=== PATIENT | female | born 1965 | race Caucasian/White ===

== ENCOUNTER 2017-05-18 12:08 | Emergency (ER) | payer MEDICAID, OTHER ==
[~2017-05-18] VITALS: Ht 175.3 cm; Wt 81.6 kg
--- NOTE | 2017-05-18 12:29 | NUR ---
Note carolbillie in EDM - 05/18/17 at 1231 by PAULA Patient discharged to home in stable conditon. Written and verbal after care instructions given. Patient MOTHERverbalizes understanding of instructions.PT SMILING, NO SIGN OF DISTRESS AT THIS TIME. PT WITH MOTHER
[2017-05-18] MEDS ORDERED: ONDANSETRON 4 MG/2 ML VIAL ONE (12:36)
[2017-05-18] MEDS ORDERED: MORPHINE SULFATE 4 MG/1 ML DISP.SYRIN ONE (12:36)
[2017-05-18] MEDS ORDERED: KETOROLAC TROMETHAMINE 30 MG INJ ONE (12:36)
[2017-05-18] MEDS ORDERED: IV NORMAL SALINE 1000 ML BAG IV ONE ×2 (12:45→14:15)
[2017-05-18] MEDS ORDERED: KETOROLAC TROMETHAMINE 30 MG INJ IVP ONE (12:45)
[2017-05-18] MEDS ORDERED: MORPHINE SULFATE 2 MG/1 ML DISP.SYRIN IV ONE (12:45)
[2017-05-18] MEDS ORDERED: ONDANSETRON 4 MG/2 ML VIAL IV ONE (12:45)
[2017-05-18] MEDS ORDERED: HYDROMORPHONE 2 MG/1 ML DISP.SYRIN ONE (12:46)
[2017-05-18 12:51] LABS: BASOPHILS # (AUTO) 0.1 K/uL (0.0-8.0); BASOPHILS % (AUTO) 0.6 % (0.0-2.0); EOSINOPHILS # (AUTO) 0.1 K/uL (0.0-0.7); EOSINOPHILS % (AUTO) 1.1 % (0.0-7.0); HEMATOCRIT 35.7 % (31.2-41.9); HEMOGLOBIN 12.2 g/dL (10.9-14.3); LYMPHOCYTES # (AUTO) 0.9 K/uL (20.0-40.0); LYMPHOCYTES % (AUTO) 9.4 % (20.5-51.5); MEAN CORPUSCULAR HEMOGLOBIN 29.9 uug (24.7-32.8); MEAN CORPUSCULAR HGB CONC 34 g/dL (32.3-35.6); MEAN CORPUSCULAR VOLUME 87.3 fL (75.5-95.3); MONOCYTES % (AUTO) 10.5 % (0.0-11.0); NEUTROPHILS # (AUTO) 7.2 K/uL (1.8-8.9); NEUTROPHILS % (AUTO) 78.4 % (38.5-71.5); PLATELET COUNT (AUTO) 316 K/uL (179-408); RED BLOOD CELL COUNT(AUTO) 4.09 MIL/uL (3.63-4.92); WHITE BLOOD COUNT (AUTO) 9.1 K/uL (3.8-11.8)
[2017-05-18 12:59] LABS: CREATININE 1.1 mg/dL (0.6-1.3); POTASSIUM 3.7 mmol/L (3.5-5.1)
[2017-05-18] MEDS ORDERED: HYDROMORPHONE 1 MG/1 ML DISP.SYRIN IV ONE (13:00)
[2017-05-18] MEDS ORDERED: AMLODIPINE 5 MG TABLET PO ONE (13:00)
[2017-05-18 13:09] LABS: BILIRUBIN,DIRECT 0.1 mg/dL (0.0-0.2); BILIRUBIN,TOTAL 0.2 mg/dL (0.2-1.0); TOTAL PROTEIN, SERUM 6.8 g/dL (6.4-8.2)
[2017-05-18] MEDS ORDERED: AMLODIPINE 5 MG TABLET ONE (13:09)
--- NOTE | 2017-05-18 13:36 | NUR ---
EKG DELAYED TO PT BECOME COMFORTABLE.
--- NOTE | 2017-05-18 13:44 | NUR ---
CALLED DR. BETHEA AND LEFT A MESSAGE WITH MARIA EUGENIA.
--- NOTE | 2017-05-18 13:56 | NUR ---
DR. BETHEA TALKINT OT DR. MENG OVER THE PHONE
[2017-05-18] MEDS ORDERED: TAMSULOSIN HCL 0.4 MG CAP.SR.24H ONE (14:05)
[2017-05-18] MEDS ORDERED: TAMSULOSIN HCL 0.4 MG CAP.SR.24H PO ONE (14:15)
[2017-05-18] MEDS ORDERED: CEPHALEXIN MONOHYDRATE 500 MG CAPSULE ONE (17:21)
[2017-05-18] MEDS ORDERED: CEPHALEXIN MONOHYDRATE 500 MG CAPSULE PO ONE (17:30)
--- NOTE | 2017-05-18 18:44 | NUR ---
Patient discharged to home in stable conditon. Written and verbal after care instructions given. Patient verbalizes understanding of instructions.pt walks in steady gait. a copy of al the er work up provided for pt for follow up. pt not driving. pt accompanied by boy friend
[2017-05-18 18:45] VITALS: BP 121/78
== END 2017-05-18 18:47 | disposition home or self-care (01) ==
LOC: ER 12:08
DX: N23 Unspecified renal colic (principal); N13.2 Hydronephrosis with renal and ureteral calculous obstruction; F17.210 Nicotine dependence, cigarettes, uncomplicated; F12.10 Cannabis abuse, uncomplicated; Z88.2 Allergy status to sulfonamides; Z88.1 Allergy status to other antibiotic agents
CPT/HCPCS: 36415; 70030-TC; 83690; 85025; 93005; A4663; J1170; J1885; J2270; J2405; J7030

== ENCOUNTER 2018-12-04 02:59 | Emergency (ER) | payer MEDICAID ==
[~2018-12-04] VITALS: Ht 175.3 cm; Wt 79.4 kg
--- NOTE | 2018-12-04 03:24 | NUR ---
Patient ambulated with stable gait. A/Ox4. Speech clear, speaks in complete sentences. No neuro deficits. Patient came for c/o lower back pain that radiates down to her leg, hx of sciatica. Also is concerned that it may be a DVT. Denies any sob, no cardiovascular distress pulses palpable. Denies any n/v/d.
--- NOTE | 2018-12-04 03:27 | NUR ---
ERMD at bedside for MSE
--- NOTE | 2018-12-04 03:34 | NUR ---
Contacted Radiology to reach out to Stu for US scan of lower extremity
[2018-12-04] MEDS ORDERED: ONDANSETRON ODT 4 MG TAB.RAPDIS ONE (03:43)
[2018-12-04] MEDS ORDERED: OXYCODONE/APAP 5-325 MG TABLET ONE (03:44)
[2018-12-04] MEDS ORDERED: CARISOPRODOL 350 MG TABLET ONE (03:44)
[2018-12-04] MEDS ORDERED: OXYCODONE/APAP 5-325 MG TABLET PO ONE (03:45)
[2018-12-04] MEDS ORDERED: CARISOPRODOL 350 MG TABLET PO ONE (03:45)
[2018-12-04] MEDS ORDERED: ONDANSETRON ODT 4 MG TAB.RAPDIS SL ONE (03:45)
--- NOTE | 2018-12-04 04:36 | NUR ---
Stu, US tech at bedside for scan
--- NOTE | 2018-12-04 04:56 | NUR ---
Patient discharged to home in stable conditon. Written and verbal after care instructions given. Patient verbalizes understanding of instructions. Patient ambulated with stable gait. Instructed patient that she may not drive, states that her boyfriend will be driving.
[2018-12-04 05:00] VITALS: BP 134/70
== END 2018-12-04 05:01 | disposition home or self-care (01) ==
LOC: ER 03:04
DX: G89.4 Chronic pain syndrome (principal); M54.41 Lumbago with sciatica, right side; F12.10 Cannabis abuse, uncomplicated; F17.290 Nicotine dependence, other tobacco product, uncomplicated; Z71.6 Tobacco abuse counseling; Z88.2 Allergy status to sulfonamides; Z88.1 Allergy status to other antibiotic agents
CPT/HCPCS: A4663; Q0162

== ENCOUNTER 2019-01-13 06:32 | Emergency (ER) | payer MEDICAID ==
[~2019-01-13] VITALS: Ht 175.3 cm; Wt 81.6 kg
--- NOTE | 2019-01-13 07:00 | NUR ---
Patient ambulated with stable gait. Speech is clear, speaks in complete sentences. No neuro deficits noted. A/Ox4. Patient came for c/o neck pain and back pain x1 mth. Respiratory even and unlabored, no cough no sob. No cardiovascular distress noted, all pulses palpable. Denies any n/v/d. Patient in bed at lowest position, call light within reach.
--- NOTE | 2019-01-13 07:04 | NUR ---
ERMD at bedside for MSE
[2019-01-13] MEDS ORDERED: LIDOCAINE 5% PATCH TD ONE ×2 (07:15→07:24)
[2019-01-13] MEDS ORDERED: CYCLOBENZAPRINE HCL 10 MG TABLET PO ONE (07:15)
[2019-01-13] MEDS ORDERED: DEXAMETHASONE SOD PHOSPHATE 4 MG INJ IM ONE (07:15)
[2019-01-13] MEDS ORDERED: CYCLOBENZAPRINE HCL 10 MG TABLET ONE (07:24)
[2019-01-13] MEDS ORDERED: DEXAMETHASONE SOD PHOSPHATE 4 MG INJ ONE (07:24)
[2019-01-13 07:38] VITALS: BP 121/85
--- NOTE | 2019-01-13 07:38 | NUR ---
Patient discharged to home in stable conditon. Written and verbal after care instructions given. Patient verbalizes understanding of instructions. Patient ambulated with stable gait.
== END 2019-01-13 07:39 | disposition home or self-care (01) ==
LOC: ER 06:36
DX: M54.41 Lumbago with sciatica, right side (principal); G89.29 Other chronic pain; F17.200 Nicotine dependence, unspecified, uncomplicated; F12.10 Cannabis abuse, uncomplicated; Z88.2 Allergy status to sulfonamides; Z88.1 Allergy status to other antibiotic agents
CPT/HCPCS: 96372; 99283; J1100; A4663

== ENCOUNTER 2019-04-12 02:13 | Emergency (ER) | payer MEDICAID ==
[~2019-04-12] VITALS: Ht 175.3 cm; Wt 83.9 kg
--- NOTE | 2019-04-12 02:20 | NUR ---
Patient walked into ER with steady gait c/o right shoulder and neck pain due to a trip and fall yesterday. Patient denies trauma to head during incident. Patient states she landed on right shoulder.
[2019-04-12] MEDS ORDERED: ONDANSETRON ODT 4 MG TAB.RAPDIS ONE (02:44)
[2019-04-12] MEDS ORDERED: HYDROCODONE/APAP 10-325 MG TABLET ONE (02:44)
[2019-04-12] MEDS ORDERED: HYDROCODONE/APAP 10-325 MG TABLET PO ONE (02:45)
[2019-04-12] MEDS ORDERED: ONDANSETRON ODT 4 MG TAB.RAPDIS SL ONE (02:45)
--- NOTE | 2019-04-12 04:03 | NUR ---
Patient discharged to home in stable conditon with friend taking patient home. Written and verbal after care instructions given. Patient verbalizes understanding of instructions. Walked out of ER with no distress noted.
[2019-04-12 04:05] VITALS: BP 128/85
== END 2019-04-12 04:06 | disposition home or self-care (01) ==
LOC: ER 02:17
DX: S49.91XA Unspecified injury of right shoulder and upper arm, initial encounter (principal); S19.9XXA Unspecified injury of neck, initial encounter; G89.29 Other chronic pain; M54.2 Cervicalgia; F17.200 Nicotine dependence, unspecified, uncomplicated; F12.10 Cannabis abuse, uncomplicated; Z88.2 Allergy status to sulfonamides; Z88.1 Allergy status to other antibiotic agents; W01.0XXA Fall on same level from slipping, tripping and stumbling without subsequent striking against object, initial encounter; Y93.89 Activity, other specified; Y92.89 Other specified places as the place of occurrence of the external cause; Y99.8 Other external cause status
CPT/HCPCS: 72125; 73030; A4663; Q0162

== ENCOUNTER 2019-04-26 19:43 | Emergency (ER) | payer MEDICAID ==
[~2019-04-26] VITALS: Ht 175.3 cm; Wt 79.4 kg
--- NOTE | 2019-04-26 21:00 | NUR ---
applied ice packs as per patient request, to the right and left shoulder area.
--- NOTE | 2019-04-26 21:01 | NUR ---
:TAQUERIA at bedside for MSE.
[2019-04-26] MEDS ORDERED: IBUPROFEN 800 MG TABLET ONE (21:14)
--- NOTE | 2019-04-26 21:14 | NUR ---
given po motrim 800 mg tolerated with water.
[2019-04-26] MEDS ORDERED: IBUPROFEN 800 MG TABLET PO ONE (21:15)
--- NOTE | 2019-04-26 21:43 | NUR ---
Patient discharged to home in stable conditon. Written and verbal after care instructions given. Patient verbalizes understanding of instructions.v/s wnl and patient went home steady of gait with d/c instructions and prescription and all patient belongings.
[2019-04-26 21:45] VITALS: BP 135/65
== END 2019-04-26 21:46 | disposition home or self-care (01) ==
LOC: ER 19:44
DX: M25.511 Pain in right shoulder (principal); K21.9 Gastro-esophageal reflux disease without esophagitis; F17.200 Nicotine dependence, unspecified, uncomplicated; F12.10 Cannabis abuse, uncomplicated; Z88.2 Allergy status to sulfonamides; Z88.8 Allergy status to other drugs, medicaments and biological substances
CPT/HCPCS: A4663

== ENCOUNTER 2019-09-17 07:11 | Emergency (ER) | payer MEDICAID ==
[~2019-09-17] VITALS: Ht 175.3 cm; Wt 83.9 kg
[2019-09-17] MEDS ORDERED: MORPHINE SULFATE 4 MG/1 ML DISP.SYRIN IM ONE (07:45)
[2019-09-17] MEDS ORDERED: MORPHINE SULFATE 4 MG/1 ML DISP.SYRIN ONE (07:47)
--- NOTE | 2019-09-17 07:47 | NUR ---
PATIENT WAS SEEN BY . MEDICATON GIVEN ORDERED BY OTHER RN. INSTRUCTED PATIENT OF PRECAUTIONS OF MORPHINE. PATIENT STATES SHE UNDERSTANDS PRECAUTIONS.
== END 2019-09-17 08:00 | disposition home or self-care (01) ==
LOC: ER 07:19
DX: M25.511 Pain in right shoulder (principal); G89.4 Chronic pain syndrome; F17.200 Nicotine dependence, unspecified, uncomplicated; K21.9 Gastro-esophageal reflux disease without esophagitis
CPT/HCPCS: 96372; 99283; J2270; A4663